=== PATIENT | female | born 1970 | race Caucasian/White ===

== ENCOUNTER 2020-12-05 07:50 | Emergency (ER) | payer MEDICAID ==
[~2020-12-05] VITALS: Ht 165.1 cm; Wt 80.0 kg
[2020-12-05] MEDS ORDERED: LEVE250T55 PO (07:56)
[2020-12-05] MEDS ORDERED: NALT380S2 IM (07:56)
[2020-12-05] MEDS ORDERED: BUPR75 PO (07:56)
[2020-12-05 08:01] VITALS: BP 153/103
[2020-12-05] MEDS ORDERED: PROPARACAINE HCL 0.5% 15 ML OPHTHALMIC SOLUTION OD ONE (08:45)
[2020-12-05] MEDS ORDERED: FLUORESCEIN SODIUM 1 MG STRIP OD ONE (08:45)
== END 2020-12-05 09:27 | disposition home or self-care (01) ==
LOC: EMS 07:59
DX: H10.9 Unspecified conjunctivitis (principal)
CPT/HCPCS: 99283